=== PATIENT | male | born 1990 ===

== ENCOUNTER 2018-11-30 22:10 | Inpatient (IN) | payer OTHER ==
[~2018-11-30] VITALS: Ht 170.2 cm; Wt 85.3 kg
[~2018-11-30 22:10] MED LIST: AGM875T PO; [UNRECOGNIZED DRUG - CODE] PO
[2018-11-30] MEDS ORDERED: LACTATED RINGERS 1,000 ML IV ONE (22:29)
[2018-11-30] MEDS ORDERED: HYOSCYAMINE 0.125 MG (LEVSIN) TAB SL ONE (22:30)
[2018-11-30] MEDS ORDERED: ONDANSETRON 4 MG/2 ML (SDV) Z0FRAN IVP ONE (22:30)
[2018-11-30 22:37] LABS: BILIRUBIN,URINE NEGATIVE (NEGATIVE); CLARITY,URINE CLEAR; COLOR,URINE YELLOW; GLUCOSE, URINE (UA) 4+ (NEGATIVE); KETONES,URINE 1+ (NEGATIVE); LEUKOCYTE ESTERASE ,URINE NEGATIVE (NEGATIVE); NITRITE,URINE NEGATIVE (NEGATIVE); PH,URINE 5 (5-9); PROTEIN,URINE 3+ (NEGATIVE); UROBILINOGEN,URINE NORMAL (NORMAL)
[2018-11-30 22:37] LABS: BASOPHILS % (AUTO) 0 % (0-10); EOSINOPHILS # (AUTO) 0.7 10^3/uL (0.0-0.3); EOSINOPHILS % (AUTO) 5 % (0-10); HEMATOCRIT 43 % (40-54); LYMPHOCYTES # (AUTO) 3.7 X 10^3 (1.0-4.0); LYMPHOCYTES % (AUTO) 24 % (12-44); MEAN CORPUSCULAR HEMOGLOBIN 25 PG (25-34); MEAN CORPUSCULAR HGB CONC 35 G/DL (32-36); MEAN CORPUSCULAR VOLUME 71 FL (80-99); MEAN PLATELET VOLUME 11.1 FL (7.4-10.4); MONOCYTES # (AUTO) 0.9 X 10^3 (0.0-1.0); MONOCYTES % (AUTO) 6 % (0-12); NEUTROPHILS # (AUTO) 10.2 X 10^3 (1.8-7.8); NEUTROPHILS % (AUTO) 66 % (42-75); PLATELET COUNT 195 10^3/uL (130-400); WHITE BLOOD COUNT 15.5 10^3/uL (4.3-11.0)
[2018-11-30 22:46] LABS: BACTERIA,URINE FEW /HPF; RBC,URINE RARE /HPF; SQUAMOUS EPITHELIAL CELL,UR 0-2 /HPF; WBC,URINE RARE /HPF
[2018-11-30 22:49] LABS: INR 1.1 (0.8-1.4); PROTHROMBIN TIME PATIENT 14.3 SEC (12.2-14.7)
[2018-11-30 22:59] LABS: ALANINE AMINOTRANSFERASE 73 U/L (0-55); ALBUMIN 4.6 GM/DL (3.2-4.5); ALKALINE PHOSPHATASE 123 U/L (40-136); AMYLASE 35 U/L (25-125); BILIRUBIN,TOTAL 0.4 MG/DL (0.1-1.0); BUN/CREATININE RATIO 13; CALCIUM 9.7 MG/DL (8.5-10.1); CARBON DIOXIDE 20 MMOL/L (21-32); CHLORIDE 103 MMOL/L (98-107); GFR ESTIMATED > 60; GLUCOSE 301 MG/DL (70-105); LIPASE 31 U/L (8-78); POTASSIUM 3.7 MMOL/L (3.6-5.0); SODIUM 137 MMOL/L (135-145); TOTAL PROTEIN 8.3 GM/DL (6.4-8.2)
[2018-11-30] MEDS ORDERED: NS 100 ML (IVPB) BAG IV ONE (23:15)
[2018-11-30] MEDS ORDERED: HOLD METFORMIN - RECEIVED CONTRAST 20 ML VIAL IV SCH (23:15)
[2018-11-30] MEDS ORDERED: IOHEXOL 350 MG/ML 100 ML (OMNIPAQUE 350) VIAL IV ONE (23:15)
[2018-11-30] MEDS ORDERED: PIPERACILLIN/TAZO 4.5 GM VIAL (ZOSYN) IV ONE (23:28)
[2018-11-30] MEDS ORDERED: PIPERACILLIN/TAZOBACTAM (BULK) 4.5 GM in NS (IVPB) 100 ML IV ONE (23:30)
[2018-11-30] MEDS ORDERED: KETOROLAC 30 MG/ML VIAL IVP ONE (23:30)
[2018-11-30] MEDS ORDERED: inSUlin (REGULAR) HUMAN 1 UNIT/0.01 ML (CHARGE PER UNIT) IV ONE (23:30)
[2018-11-30 23:39] LABS: EOSINOPHILS % (MANUAL) 4 %; LYMPHOCYTES % (MANUAL) 17 %; MICROCYTOSIS SLIGHT; MONOCYTES % (MANUAL) 3 %; NEUTROPHILS % (MANUAL) 76 %
[2018-12-01] VITALS (14 sets, daily range): BP systolic 83–144; BP diastolic 37–80
[2018-12-01] MEDS ORDERED: ONDANSETRON 4 MG/2 ML (SDV) Z0FRAN IV PRN (00:30)
[2018-12-01] MEDS: NS IV 1000 ML 1,000 ML IV SCH ×4 (00:31→15:42)
--- NOTE | 2018-12-01 01:50 | NUR ---
REPORT RECEIVED FROM CHARLOTTE SHAH. TRANSFERRED TO MED/SURG 408. FAMILY AT BEDSIDE.
[2018-12-01] MEDS: fentaNYL INJECTION 100 MCG/2 ML AMP IV PRN ×3 (03:43→10:07)
[2018-12-01] MEDS ORDERED: morphine INJ 4 MG/ML 1 ML (VIAL/SYRINGE) ONE (04:22)
--- NOTE | 2018-12-01 04:25 | NUR ---
PT C/O STABBING ABDOMINAL PAIN WORSENING AFTER FENTANYL ADMINISTERED. DR POLO CONTACTED, ORDERED MORPHINE 2 MG Q 3 HR PRN PAIN.
[2018-12-01] MEDS: morphine INJ 4 MG/ML 1 ML (VIAL/SYRINGE) IVP PRN ×3 (04:31→09:22)
[2018-12-01 05:30] LABS: BASOPHILS % (AUTO) 0 % (0-10); EOSINOPHILS # (AUTO) 0.1 10^3/uL (0.0-0.3); EOSINOPHILS % (AUTO) 1 % (0-10); HEMATOCRIT 38 % (40-54); HEMOGLOBIN 12.9 G/DL (13.3-17.7); LYMPHOCYTES # (AUTO) 1.6 X 10^3 (1.0-4.0); LYMPHOCYTES % (AUTO) 13 % (12-44); MEAN CORPUSCULAR HEMOGLOBIN 25 PG (25-34); MEAN CORPUSCULAR HGB CONC 34 G/DL (32-36); MEAN CORPUSCULAR VOLUME 73 FL (80-99); MEAN PLATELET VOLUME 11.5 FL (7.4-10.4); MONOCYTES # (AUTO) 0.9 X 10^3 (0.0-1.0); MONOCYTES % (AUTO) 7 % (0-12); NEUTROPHILS # (AUTO) 10.2 X 10^3 (1.8-7.8); NEUTROPHILS % (AUTO) 80 % (42-75); PLATELET COUNT 143 10^3/uL (130-400); RED CELL DISTRIBUTION WIDTH 14.8 % (10.0-14.5); WHITE BLOOD COUNT 12.8 10^3/uL (4.3-11.0)
[2018-12-01] MEDS: inSUlin ASPART (NovoLOG) 1 UNIT/0.01 ML (CHARGE PER UNIT) SC SCH ×4 (05:56→18:34)
[2018-12-01 06:04] LABS: ALANINE AMINOTRANSFERASE 58 U/L (0-55); ALBUMIN 3.9 GM/DL (3.2-4.5); ALKALINE PHOSPHATASE 101 U/L (40-136); BILIRUBIN,TOTAL 0.5 MG/DL (0.1-1.0); BUN/CREATININE RATIO 15; CALCIUM 8.9 MG/DL (8.5-10.1); CARBON DIOXIDE 21 MMOL/L (21-32); CHLORIDE 105 MMOL/L (98-107); CREATININE SERUM 0.75 MG/DL (0.60-1.30); GFR ESTIMATED > 60; GLUCOSE 261 MG/DL (70-105); POTASSIUM 3.6 MMOL/L (3.6-5.0); SODIUM 138 MMOL/L (135-145); TOTAL PROTEIN 6.8 GM/DL (6.4-8.2)
--- NOTE | 2018-12-01 06:11 | Diagnostic Imaging Report ---
PROCEDURE: CT abdomen and pelvis with contrast. TECHNIQUE: Multiple contiguous axial images were obtained through the abdomen and pelvis after administration of intravenous contrast. Auto Exposure Controls were utilized during the CT exam to meet ALARA standards for radiation dose reduction. INDICATION: Epigastric pain and nausea There is low density throughout the liver indicating hepatic steatosis with an approximately 3 cm hyperdense focus in the dome of the right lobe which could be related to focal nodular hyperplasia, focal fatty sparing or hepatic adenoma. No gallbladder, biliary tree, pancreatic, adrenal glands or splenic abnormality is identified. There is no evidence of free fluid within the abdomen. The appendix is enlarged reaching 1 cm in diameter with minimal surrounding edema. There is no evidence of periappendiceal abscess. Partially opacified urinary bladder is unremarkable. There is no pathologic adenopathy identified. IMPRESSION: Findings are compatible with acute appendicitis without significant periappendiceal inflammation or fluid collection to indicate perforation. Otherwise, there is fatty infiltration of the liver with probable 3 cm focal nodular hyperplasia or adenoma in the right lobe. Dictated by: Dictated on workstation # [id number]
--- NOTE | 2018-12-01 07:00 | NUR ---
DR LOPES NOTIFIED OF CONSULT BY THIS RN.
[2018-12-01] MEDS: PIPERACILLIN/TAZO 4.5 GM/NS 100 ML IV SCH ×4 (07:54→15:48)
[2018-12-01] MEDS ORDERED: PANTOPRAZOLE 40 MG (PROTONIX) VIAL IV SCH (09:00)
[2018-12-01] MEDS ORDERED: ONDANSETRON 4 MG/2 ML (SDV) Z0FRAN ONE (10:24)
[2018-12-01] MEDS ORDERED: DEXAMETHASONE 10 MG/ML (DECADRON) 1 ML VIAL ONE (10:24)
[2018-12-01] MEDS ORDERED: LIDOCAINE PF 2% 5 ML (XYLOCAINE) VIAL ONE (10:24)
[2018-12-01] MEDS ORDERED: proPOfol 200 MG/20 ML (DIPRIVAN) VIAL IV ONE (10:24)
[2018-12-01] MEDS ORDERED: MIDAZOLAM 2 MG/2 ML (VERSED) VIAL ONE (10:24)
[2018-12-01] MEDS ORDERED: SEVOFLURANE (ULTANE) 15 ML INHAL SOLN ONE ×3 (10:24→14:30)
[2018-12-01] MEDS ORDERED: fentaNYL INJECTION 100 MCG/2 ML AMP ONE ×2 (10:26→14:13)
--- NOTE | 2018-12-01 11:18 | NUR ---
Initial visit with the pt and his significant other, Tammy, who introduced herself as the pt's "partner." I utilized the language line for Togolese-South Korean translation. The pt shared he was concerned about the delay in his surgery. He wants to return to providing for his family as soon as possible, having 4 children at home between the ages of 3 and 11 years old. Tammy was reassuring and supportive to the pt. She shared that her sister is of support to them and watching their children at this time. The pt is Jain and welcomed prayer .
--- NOTE | 2018-12-01 11:37 | History & Physical-Surgical ---
History of Present Illness History of Present Illness Reason for visit/HPI Surgery asked to see and admit pt for Acute appendicitis. HPI: Pt is a 28 yo male who began having pain around umbilicus at 1pm yesterday and it got progressively worse; radiated into RLQ and stayed there. He rated pain as 5 out of 10; sharp stabbing pain that is better with pain meds. Pt has never had pain like this before. Date of Admission Nov 30, 2018 at 23:25 Time Seen by a Provider: 10:04 I consulted on this patient on 12/01/18 11:30 Attending Physician Ricardo Lyn DO Admitting Physician No,Local Physician Consult Allergies and Home Medications Allergies Coded Allergies: No Known Drug Allergies (Unverified , 09/08/14) Home Medications No Active Prescriptions or Reported Meds Patient Home Medication List Home Medication List Reviewed: Yes Past Lyyzqop-Hieowy-Leoplu Hx Patient Social History Alcohol Use: Denies Use Recreational Drug Use: No Smoking Status: Never a Smoker 2nd Hand Smoke Exposure: No Recent Foreign Travel: No Contact w/Someone Who Travel: No Recent Infectious Disease Expo: No Recent Hopitalizations: No Immunizations Up To Date Tetanus Booster (TDap): Unknown Seasonal Allergies Seasonal Allergies: No Surgeries History of Surgeries: No Respiratory History of Respiratory Disorde: No Cardiovascular History of Cardiac Disorders: No Neurological History of Neurological Disord: No Genitourinary History of Genitourinary Disor: No Gastrointestinal History of Gastrointestinal Di: No Musculoskeletal History of Musculoskeletal Dis: No Endocrine History of Endocrine Disorders: No HEENT History of HEENT Disorders: No Cancer History of Cancer: No Psychosocial History of Psychiatric Problem: No Integumentary History of Skin or Integumenta: No Blood Transfusions History of Blood Disorders: No Family Medical History Significant Family History: Diabetes (denies any family hx of DM) Review of Systems Constitutional: chills; No diaphoresis; weakness EENTM: No blurred vision, No mouth pain, No mouth swelling, No epistaxis Respiratory: No cough, No dyspnea on exertion, No short of breath Cardiovascular: No chest pain, No edema, No palpitations Gastrointestinal: abdominal pain; No jaundice; nausea; No vomiting Genitourinary: No dysuria, No frequency, No hematuria Musculoskeletal: joint pain, joint swelling, muscle pain, muscle stiffness Skin: No change in color, No change in hair/nails Psychiatric/Neurological: Denies Anxiety, Denies Depressed, Denies Seizure, Denies Tremors pt denies any hx of abnormal bleeding or bruising, no hx of heat or cold intolerance Physical Exam Vital Signs Vital Signs - First Documented 11/30/18 22:14 Temp 100.0 Pulse 94 Resp 18 B/P (MAP) 133/88 (103) Pulse Ox 95 O2 Delivery Room Air Capillary Refill : Less Than 3 Seconds Height, Weight, BMI Height: 5'7.00" Weight: 188lbs. 0.2oz. 85.263348ti; 29.5 BMI Method:Stated General Appearance: WD/WN, Mild Distress Eyes: Bilateral Eye PERRL, Bilateral Eye EOMI HEENT: Pharynx Normal, Moist Mucous Membranes; No Scleral Icterus (L), No Scleral Icterus (R) Neck: Full Range of Motion, Normal Inspection, Non Tender, Supple Respiratory: Chest Non Tender, Lungs Clear, Normal Breath Sounds, No Accessory Muscle Use, No Respiratory Distress Cardiovascular: Regular Rate, Rhythm, No Murmur Gastrointestinal: Normal Bowel Sounds, No Pulsatile Mass, Soft, Tenderness (RLQ) Rectal: Deferred Back: Normal Inspection, No CVA Tenderness, No Vertebral Tenderness Extremity: Normal Capillary Refill, Normal Range of Motion, Non Tender, No Calf Tenderness Neurologic/Psychiatric: Alert, Oriented x3, No Motor/Sensory Deficits, Normal Mood/Affect, 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 Skin: Normal Color, Warm/Dry Lymphatic: No Adenopathy (neck, axilla or groin) Data Review Labs Laboratory Tests 11/30/18 22:25: Urine Color YELLOW, Urine Clarity CLEAR, Urine pH 5, Urine Specific [place] 1.025H, Urine Protein 3+H, Urine Glucose (UA) 4+H, Urine Ketones 1+H, Urine Nitrite NEGATIVE, Urine Bilirubin NEGATIVE, Urine Urobilinogen NORMAL, Urine Leukocyte Esterase NEGATIVE, Urine RBC (Auto) 4+H, Urine RBC RARE, Urine WBC RARE, Urine Squamous Epithelial Cells 0-2, Urine Crystals NONE, Urine Bacteria FEWH, Urine Casts NONE, Urine Mucus SMALLH, Urine Culture Indicated NO 11/30/18 22:30: White Blood Count 15.5H, Red Blood Count 6.05H, Hemoglobin 15.0, Hematocrit 43, Mean Corpuscular Volume 71L, Mean Corpuscular Hemoglobin 25, Mean Corpuscular Hemoglobin Concent 35, Red Cell Distribution Width 15.0H, Platelet Count 195, Mean Platelet Volume 11.1H, Neutrophils (%) (Auto) 66, Lymphocytes (%) (Auto) 24, Monocytes (%) (Auto) 6, Eosinophils (%) (Auto) 5, Basophils (%) (Auto) 0, Neutrophils # (Auto) 10.2H, Lymphocytes # (Auto) 3.7, Monocytes # (Auto) 0.9, Eosinophils # (Auto) 0.7H, Basophils # (Auto) 0.0, Neutrophils % (Manual) 76, Lymphocytes % (Manual) 17, Monocytes % (Manual) 3, Eosinophils % (Manual) 4, Microcytosis SLIGHT, Prothrombin Time 14.3, INR Comment 1.1, Activated Partial Thromboplast Time 26, Sodium Level 137, Potassium Level 3.7, Chloride Level 103, Carbon Dioxide Level 20L, Anion Gap 14, Blood Urea Nitrogen 12, Creatinine 0.90, Estimat Glomerular Filtration Rate > 60, BUN/Creatinine Ratio 13, Glucose Level 301H, Calcium Level 9.7, Corrected Calcium , Total Bilirubin 0.4, Aspartate Amino Transf (AST/SGOT) 30, Alanine Aminotransferase (ALT/SGPT) 73H, Alkaline Phosphatase 123, Total Protein 8.3H, Albumin 4.6H, Amylase Level 35, Lipase 31 12/01/18 04:51: White Blood Count 12.8H, Red Blood Count 5.23, Hemoglobin 12.9L, Hematocrit 38L, Mean Corpuscular Volume 73L, Mean Corpuscular Hemoglobin 25, Mean Corpuscular Hemoglobin Concent 34, Red Cell Distribution Width 14.8H, Platelet Count 143, Mean Platelet Volume 11.5H, Neutrophils (%) (Auto) 80H, Lymphocytes (%) (Auto) 13, Monocytes (%) (Auto) 7, Eosinophils (%) (Auto) 1, Basophils (%) (Auto) 0, Neutrophils # (Auto) 10.2H, Lymphocytes # (Auto) 1.6, Monocytes # (Auto) 0.9, Eosinophils # (Auto) 0.1, Basophils # (Auto) 0.0, Sodium Level 138, Potassium Level 3.6, Chloride Level 105, Carbon Dioxide Level 21, Anion Gap 12, Blood Urea Nitrogen 11, Creatinine 0.75, Estimat Glomerular Filtration Rate > 60, BUN/Creatinine Ratio 15, Glucose Level 261H, Calcium Level 8.9, Corrected Calcium 9.0, Total Bilirubin 0.5, Aspartate Amino Transf (AST/SGOT) 26, Alanine Aminotransferase (ALT/SGPT) 58H, Alkaline Phosphatase 101, Total Protein 6.8, Albumin 3.9 12/01/18 05:38: Glucometer 255H Assessment/Plan Assessment/Plan Admission Diagonsis Acute Appendicitis Admission Status: Observation Assessment/Plan Acute appendicitis Pt had elevated WBC (15.5) and CT was read by radiologist as acute appendicitis. Pt was admitted NPO, started on IV fluids, IV ABX, pain control and anti- emetics. Plan to go to the OR for laparoscopic Appendectomy possible open. Discussed rksks and complications not limited to pain, bleeding, infection, scar and damage to bowel. All questions answered to his satisfaction. Clinical Quality Measures DVT/VTE Risk/Contraindication: RFS Level Per Nursing on Admit: 0=No Risk/No VTE PPX RICARDO LYN DO Dec 01, 2018 11:37
[2018-12-01] MEDS ORDERED: BUP/EPI 0.5% 1:200,000 (MARCAINE) 10ML VIAL IJ ONE (12:02)
--- NOTE | 2018-12-01 12:19 | Consultation ---
HPI History of Present Illness: 28 yo male came to ER due to right lower abdominal pain that started around belly button. Started yesterday afternoon. Denies fever. Admits nausea that he does not have currently however. No vomiting, diarrhea. Admits constipation, last BM yesterday evening but was very small. He admits he was told around a year ago his blood sugar was "a point off" and given medicine, but he was feeling okay so he stopped taking it. Date seen by provider: Dec 01, 2018 Time Seen by Provider: 12:18 Attending Physician Ricardo Lyn DO PCP No,Local Physician Consult Date of Admission Nov 30, 2018 at 23:25 Home Medications Home Medications Reviewed patient Home Medication Reconciliation performed by pharmacy medication reconciliations traffic engineering technician and/or nursing. Patients Allergies have been reviewed. Allergies Coded Allergies: No Known Drug Allergies (Unverified , 09/08/14) [id number] Hx Patient Social History Alcohol Use: Denies Use Recreational Drug Use: No Smoking Status: Never a Smoker 2nd Hand Smoke Exposure: No Recent Foreign Travel: No Contact w/other who traveled: No Recent Hopitalizations: No Recent Infectious Disease Expo: No Immunizations Up To Date Tetanus Booster (TDap): Unknown Review of Systems ([facility]) Constitutional: see HPI Physical Exam-([facility]) Physical Exam Vital Signs VS - Last 72 Hours, by Label 11/30/18 11/30/18 12/01/18 12/01/18 22:14 23:47 00:18 00:41 Temp 100.0 99.9 98.2 Pulse 94 83 83 Resp 18 16 14 B/P (MAP) 133/88 (103) 151/89 (109) 130/72 Pulse Ox 95 98 97 97 O2 Delivery Room Air Room Air Room Air Room Air 12/01/18 12/01/18 12/01/18 12/01/18 04:00 08:00 08:00 12:00 Temp 97.5 99.7 99.7 Pulse 77 70 88 Resp 20 18 18 B/P (MAP) 144/80 (101) 136/79 (98) 130/76 (94) Pulse Ox 97 95 95 97 O2 Delivery Room Air Room Air Room Air Room Air 12/01/18 12/01/18 12/01/18 12/01/18 14:42 14:42 14:50 14:50 Temp 97.6 Resp 14 12 Pulse Ox 96 99 O2 Delivery OxyMask OxyMask OxyMask OxyMask O2 Flow Rate 6 6 6 6 12/01/18 12/01/18 12/01/18 12/01/18 15:00 15:05 15:10 15:15 Resp 12 14 Pulse Ox 96 96 O2 Delivery OxyMask OxyMask OxyMask OxyMask O2 Flow Rate 6 6 3 3 12/01/18 12/01/18 12/01/18 12/01/18 15:20 15:30 15:30 15:40 Resp 14 12 Pulse Ox 96 90 O2 Delivery Room Air OxyMask Nasal Cannula OxyMask O2 Flow Rate 2 2 2 12/01/18 12/01/18 12/01/18 15:40 15:50 20:18 Temp 97.6 98.5 99.0 Pulse 80 85 Resp 18 16 20 B/P (MAP) 105/61 (76) 123/71 (88) Pulse Ox 96 96 97 O2 Delivery Nasal Cannula Nasal Cannula Room Air O2 Flow Rate 2 3.00 Capillary Refill : Less Than 3 Seconds General Appearance: WD/WN, no apparent distress Respiratory: lungs clear Cardiovascular: regular rate, rhythm, no murmur Gastrointestinal: normal bowel sounds, soft, other (ttp RLQ) Neurologic/Psychiatric: alert, normal mood/affect Skin: normal color, warm/dry Assessment/Plan Assessment/Plan (1) Appendicitis Status: Acute Assessment & Plan: To OR today. Qualifiers: (2) Hyperglycemia Status: Acute Assessment & Plan: Sliding scale insulin. A1c pending. Clinical Quality Measures DVT/VTE Risk/Contraindication: RFS Level Per Nursing on Admit: 0=No Risk/No VTE PPX FITO OLPES MD Dec 01, 2018 12:18
[2018-12-01] MEDS: LACTATED RINGERS 1,000 ML IV PRN ×2 (12:34→14:19)
[2018-12-01] MEDS ORDERED: GLYCOPYRROLATE 0.2 MG/ML (ROBINUL) 2 ML VIAL ONE (14:29)
[2018-12-01] MEDS ORDERED: KETOROLAC 30 MG/ML VIAL ONE (14:29)
[2018-12-01] MEDS ORDERED: NEOSTIGMINE 3 MG/3 ML VIAL ONE (14:29)
[2018-12-01] MEDS ORDERED: ROCURONIUM 10 MG/ML 5 ML SYRINGE IV ONE (14:29)
--- NOTE | 2018-12-01 14:39 | Progress Note-Post Operative ---
Post-Operative Progess Note Surgeon (s)/Curing Pickling Packer (s) Surgeon SIMIN POLO DO Curing Pickling Packer: [place] Dixon, MS III Pre-Operative Diagnosis Acute Appy Post-Operative Diagnosis same B/L Ind IH Procedure & Operative Findings Date of Procedure 12/01/18 Procedure Performed/Findings Lap Appy Anesthesia Type GET Estimated Blood Loss Estimated blood loss (mL): scant Specimens/Packing Specimens Removed SIMIN Gonzales DO Dec 01, 2018 14:39
[2018-12-01] MEDS ORDERED: ACHD5005 PO (14:40)
--- NOTE | 2018-12-01 14:41 | Discharge Inst-Surgical ---
Discharge Inst-Surgical Depart Medication/Instructions New, Converted or Re-Newed RX: RX Given to Pt/Family Patient Instructions Follow up Appt: Make appointment for 1 week. [phone] Instructions: No lifting greater than 20 pounds. No strenuous activity. May shower in 24 hours, no tub bath or soaking. Use incentive spirometer at home as directed. No Smoking Skin/Wound Care: May remove bandages in am. You need to leave the Dermabond on incision it will fall off on it's own. Symptoms to Report: Appetite Changes, Extremity Discoloration, Numbness/Tingling, Swelling Increased, Bleeding Excessive, Eyesight Changes, Pain Increased, Urine Color Change, Constipation(Persistent), Fever over 101 degree F, Pain/Pressure in chest, Urinating Difficulty, Cough Up/Vomit Blood, Heart Beat Irreg/Pounding, Pain/Pressure in jaw, Cramps in feet or legs, Lightheadedness, Pain/Pressure in shoulder, Diarrhea(Persistent), Memory Changes Suddenly, Questions/Concerns, Weight gain consecutive days, Dizziness/Fainting, Nausea/Vomiting, Shortness of Breath, Weight gain over 2 pounds If questions or concerns contact your physician Or seek help at emergency department. Activity Activity as Tolerated: Yes Activity Instructions: Avoid Stress to Incision Driving Instructions: No Driving/Refer to Dr. Mcakay Discharge Diet: No Restrictions Diet After 24 Hours: Clear Liquid if Nauseous If Any Problems/Questions/Issu: Contact Your Physician, Go to Emergency Room Skin/Wound Care Infection Signs and Symptoms: Increased Redness, Foul Odor of Wound, Increased Drainage, Skin Itchy or Has a Rash, Increased Swelling, Temperature Above 101 F Wound Care Comment: heating pad to shoulder or neck tonight Bathing Instructions: Shower Stitches/Rupali/Dermabond Dis: Dermabond Ice Pack: Ice On and Off Site (as needed for pain at incisions) SIMIN POLO DO Dec 01, 2018 14:41
[2018-12-01] MEDS ORDERED: HYDROmorphone 2 MG/ML VIAL (DILAUDID) IV ONE (15:00)
[2018-12-01] MEDS ORDERED: MEPERIDINE (DEMEROL) INJ 50 MG/ML IVP ONE (15:00)
[2018-12-01] MEDS ORDERED: ONDANSETRON 4 MG/2 ML (SDV) Z0FRAN IVP PRN (15:00)
[2018-12-01] MEDS ORDERED: morphine INJ 10 MG/ML 1ML (SYR OR VIAL) IVP ONE (15:00)
--- NOTE | 2018-12-01 19:24 | OPERATIVE REPORT ---
DATE OF SERVICE: PREOPERATIVE DIAGNOSIS: Acute appendicitis. POSTOPERATIVE DIAGNOSIS: Acute appendicitis plus bilateral indirect inguinal hernia. PROCEDURE: Laparoscopic appendectomy. SURGEON: Ricardo Lyn DO ECOLOGICAL RISK ASSESSOR: [place] Dixon MS3. ANESTHESIA: General endotracheal tube. SPECIMEN: Appendix. BLOOD LOSS: Scant. FLUIDS: Per anesthesia. POSTOPERATIVE CONDITION: Stable. INDICATION FOR PROCEDURE: The patient is a 28-year-old male who had pain in the right lower quadrant, elevated white count and a CT, which confirmed acute appendicitis. FINDINGS: The patient had acute appendicitis, very thickened appendix noted to have bilateral indirect inguinal hernia as well. PROCEDURE NOTE: After informed consent was obtained, the patient was brought to the operating room, placed on the table in supine position. He was sterilely prepped and draped in normal fashion. Local lidocaine was used to infiltrate the skin above the umbilicus. I made the incision with #11 blade, carried down through the skin into subcutaneous tissue, then deepened down to subcutaneous tissue with Bovie electrocautery down to fascia. Fascia was incised with Bovie electrocautery and bluntly entered the abdomen, swept a finger around, placed 0 Vicryl [id number] suture and placed an 11 mm trocar port under direct visualization. Created pneumoperitoneum and placed 2 more ports in normal fashion using local lidocaine, 11 blade for stab incision and Versed system, all done under direct visualization, one suprapubically and one in the left lower quadrant. The patient was then placed slightly Trendelenburg with left, looked in the pelvis, saw indirect inguinal hernia on both sides, took a picture of this and then noted the appendix was very thickened. There was some fibrinous material around it and some murky fluid, but no real purulence, had not perforated. Carefully moved the small intestine in the sigmoid out of the way and we started trying to get it was kind of curled up almost a retrocecal, so able to grasp the mesoappendix and then grasped with a LigaSure, clamping, coagulating and transect and then get under the appendix right at the base of the cecum and then switched to 5 mm camera, brought Endo-ROSMERY the base of the appendix, clamped and held for 30 seconds, then fired, held for 20 seconds and then cut the appendix off and then removed this and then used the LigaSure coming across the mesoappendix mm in a stepwise fashion, clamping, coagulating and transecting in this fashion completely removing the appendix and then placed a bag down in, placed the appendix in the bag and removed through supraumbilical incision. Placed the port back in the abdomen, copiously irrigated with normal saline suctioned this out. Irrigated until it was clear, took a picture of the staple line, looked good and then placed the omentum back over the staple line. Placed the patient flat and then removed all ports under direct visualization, allowed pneumoperitoneum to escape as well as suctioned it out. I then closed the supraumbilical incision, closing the fascia with 0 Vicryl suture previously placed and then copiously irrigated all incisions with normal saline, closing the 2 small 5 mm incisions with single interrupted 4-0 undyed Monocryl subcuticular stitch, closed supraumbilical incision with four interrupted 4-0 undyed Monocryl subcuticular stitches. Area was cleaned and dried. Dermabond placed as well as Band-Aids. The patient then transferred to recovery room in stable condition. The patient tolerated the procedure well. Sponge, instrument and needle count correct at the end of the case. Job ID: [id number] DocumentID: [id number] Dictated Date: 12/01/2018 14:38:45 Emergency Care Tech Date: 12/01/2018 19:23:46 Dictated By: DO CALLY JUNE
--- NOTE | 2018-12-02 07:40 | Anesthesia-General Post-Op ---
General Patient Condition Mental Status/LOC: Same as Preop Cardiovascular: Satisfactory Nausea/Vomiting: Absent Respiratory: Satisfactory Pain: Controlled Complications: Absent Post Op Complications Complications None Follow Up Care/Instructions Patient Instructions None needed. Anesthesia/Patient Condition Patient Condition Patient is doing well, no complaints, stable vital signs, no apparent adverse anesthesia problems. No complications reported per nursing. [place] [facility] [place] Yes ERASMO JOHNSTON CRNA Dec 02, 2018 07:40
== END 2018-12-01 20:25 | disposition home or self-care (01) | DRG 343 ==
LOC: EDUNIT# 22:10 → ER 22:12 → ICU 23:25 → 4TH 12-01 01:50
PROVIDERS: ADMIT Surgery; ATTEND Surgery
PROC: 0DTJ4ZZ Resection of Appendix, Percutaneous Endoscopic Approach (ICD-10-PCS; principal; 2018-12-01 13:46)
DX: K35.80 Unspecified acute appendicitis (principal); R73.9 Hyperglycemia, unspecified; K40.20 Bilateral inguinal hernia, without obstruction or gangrene, not specified as recurrent
CPT/HCPCS: 36415; 74177; 80053; 81000; 82150; 82962; 83036; 83690; 85007; 85025; 85027; 85610; 85730; 87081

== ENCOUNTER 2019-06-07 01:38 | Emergency (ER) | payer SELFPAY ==
[~2019-06-07] VITALS: Ht 162 cm; Wt 86.2 kg
[~2019-06-07 01:38] MED LIST changes: +ACHD5005 PO
[2019-06-07] MEDS ORDERED: BUPIVACAINE 0.5% 30 ML (SENSORCAINE) VIAL INJ ONE (02:15)
[2019-06-07] MEDS ORDERED: KETOROLAC 60 MG/2 ML VIAL IM ONE (02:15)
[2019-06-07] MEDS ORDERED: methylPREDNISolone 40 MG/ML (DEPO MEDROL) VIAL IM ONE (02:15)
[2019-06-07] MEDS ORDERED: LIDOCAINE/EPI 2% 1:100,00 (XYLOCAINE) 20 ML VIAL INJ ONE (02:15)
--- NOTE | 2019-06-07 02:21 | ED Lower Extremity ---
General Chief Complaint: Lower Extremity Stated Complaint: L LEG PAIN Nursing Triage Note: C/O LOWER EXTREMITY PAIN IN LEFT POSTERIOR THIGH AREA. WAS SEEN AT [facility] IN THE WEEK AND STARTED ON PREDNISONE AND CYCLOBENZEPRINE. C/O PAIN CRAMPING Nursing Sepsis Screen: No Definite Risk Source: patient, family Exam Limitations: no limitations History of Present Illness Date Seen by Provider: Jun 07, 2019 Time Seen by Provider: 02:06 Initial Comments Patient presents ER by private conveyance with chief complaint of pain in the back of his left leg for the past 3 months that has progressively gotten worse over the last 2-3 days. He went to the clinic at [facility], 1928[facility]1983 and was given muscle relaxants as well as prednisone which she has been taking with no relief in the past 2 days. He is also using Tylenol and ibuprofen. No topical creams. No inciting incident or trauma. No car wreck fall etc. He has had his appendix out but no other significant surgeries. He rates the pain is severe presently and is very difficult to walk on it. He has some mild pain in his low back and side. He denies a history of significant back injury back surgery or back imaging. Allergies and Home Medications Allergies Coded Allergies: No Known Drug Allergies (Unverified , 09/08/14) Home Medications Hydrocodone Bit/Acetaminophen 1 Tab Tab, 1 TAB PO Q6H PRN for PAIN-MODERATE Prescribed by: SIMIN POLO on 12/01/18 1440 Patient Home Medication List Home Medication List Reviewed: Yes Review of Systems Constitutional: No chills, No diaphoresis, No fever, No malaise EENTM: No ear discharge, No hearing loss Respiratory: No cough, No short of breath Cardiovascular: No chest pain, No edema Gastrointestinal: No abdominal pain, No nausea, No vomiting Genitourinary: No dysuria, No frequency Musculoskeletal: No back pain, No joint pain Skin: No pruritus, No rash Psychiatric/Neurological: Denies Headache, Denies Numbness, Denies Paresthesia Past Vgbemgo-Pxofwv-Dcxbjp Hx Patient Social History Alcohol Use: Denies Use Recreational Drug Use: No 2nd Hand Smoke Exposure: No Recent Foreign Travel: No Contact w/Someone Who Travel: No Recent Infectious Disease Expo: No Recent Hopitalizations: No Physical Abuse: No Sexual Abuse: No Mistreated: No Fear: No Immunizations Up To Date Tetanus Booster (TDap): Unknown Seasonal Allergies Seasonal Allergies: No Past Medical History Surgeries: Yes Appendectomy Respiratory: No Cardiac: No Neurological: No Genitourinary: No Gastrointestinal: No Musculoskeletal: No Endocrine: No HEENT: No Cancer: No Psychosocial: No Integumentary: No Blood Disorders: No Physical Exam Vital Signs Vital Signs - First Documented 06/07/19 01:44 Temp 36.7 Pulse 76 Resp 20 B/P (MAP) 134/85 (101) Pulse Ox 97 Capillary Refill : Less Than 3 Seconds Height, Weight, BMI Height: 5'7.00" Weight: 188lbs. 0.2oz. 85.038975dt; 32.00 BMI Method:Stated General Appearance: WD/WN, no apparent distress HEENT: normal ENT inspection, pharynx normal Neck: full range of motion, normal inspection Cardiovascular: normal peripheral pulses, regular rate, rhythm Respiratory: no respiratory distress, no accessory muscle use Hips: bilateral hip non-tender, bilateral hip normal inspection, bilateral hip limited range of motion (secondary to pain) Legs: bilateral leg normal inspection, bilateral leg normal range of motion, bilateral leg soft tissue tenderness (posterior lateral hamstrings) Knees: bilateral knee non-tender, bilateral knee normal inspection, bilateral knee normal range of motion, bilateral knee no evidence of injury Reflexes: 2+ ankle (R), 2+ ankle (L) Neurologic/Tendon: normal sensation, normal motor functions, normal tendon functions, responds to pain, no evidence tendon injury Neurologic/Psychiatric: alert, normal mood/affect, oriented x 3 Skin: normal color, warm/dry Progress/Results/Core Measures Results/Orders My Orders Orders - DAISHA JULIO Ketorolac Injection (Toradol Injection) (06/07/19 02:15) Bupivacaine 0.5% Injection (Sensorcaine (06/07/19 02:15) Lidocaine/Epi 2% 1:100,000 (Xylocaine/Ep (06/07/19 02:15) Methylprednisolone Acetate Inj (Depo-Med (06/07/19 02:15) Femur, Left, 2 Views (06/07/19 02:21) Medications Given in ED Current Medications Medications Dose Ordered Sig/Boy Route Start Time Stop Time Status Last Admin Dose Admin Bupivacaine HCl 30 ml ONCE ONCE INJ 06/07/19 02:15 06/07/19 02:16 DC 06/07/19 02:23 30 ML Ketorolac Tromethamine 60 mg ONCE ONCE IM 06/07/19 02:15 06/07/19 02:16 DC 06/07/19 02:21 60 MG Lidocaine/ Epinephrine 20 ml ONCE ONCE INJ 06/07/19 02:15 06/07/19 02:16 DC 06/07/19 02:22 20 ML Methylprednisolone Acetate 40 mg ONCE ONCE IM 06/07/19 02:15 06/07/19 02:16 DC 06/07/19 02:22 40 MG Vital Signs/I&O 06/07/19 01:44 Temp 36.7 Pulse 76 Resp 20 B/P (MAP) 134/85 (101) Pulse Ox 97 Blood Pressure Mean: 101 Progress Progress Note #1: Time: 02:20 Progress Note His pain is reproducible with direct palpation over the L5-S1 facet joint on the left side of his back. I suspect that he is having sciatic pain related to his back. We'll get an x-ray of his hip and if the plain film is okay we can give him a shot of Depo-Medrol and a local bupivacaine/lidocaine block. Toradol for his pain immediately. Progress Note #2: Time: 03:26 Progress Note Bupivacaine, lidocaine with epinephrine to 6H and 1 cc of 40 mg Depo-Medrol injected at the level of the L5-S1 facet joint. Diagnostic Imaging Diagonstic Imaging: Xray Plain Films/CT/US/NM/MRI: femur (left) Comments No acute osseous abnormalities. Departure Impression Primary Impression: Lumbago with sciatica, left side Qualified Codes: M54.42 - Lumbago with sciatica, left side Disposition: 01 HOME, SELF-CARE Condition: Stable Departure-Patient Inst. Decision time for Depature: 03:28 Referrals: NO,LOCAL PHYSICIAN (PCP/Family) Primary Care Physician Patient Instructions: Sciatica (DC) Add. Discharge Instructions: Drink plenty of fluids. Naproxen 500 mg twice a day for the next week. Tylenol 1000 mg every 8 hours as needed for pain. Heating pads and topical creams such as icy hot or Biofreeze use liberally. Do not lift push or pull more than 40 pounds for the next 2 weeks. Return to work Saturday. Follow-up with primary care for continued management of your symptoms. All discharge instructions reviewed with patient and/or family. Voiced understanding. Scripts Naproxen (Naprosyn) 500 Mg Tablet 500 MG PO BID for 14 Days, #30 TAB 0 Refills Prov: DAISHA JULIO 06/07/19 Work/School Note: Work Release Form Date Seen in the Emergency Department: Jun 07, 2019 Return to Work: Jun 09, 2019 Restrictions: Need Release from Doctor Other Restrictions Listed Below: Do not lift, push or pull more than 40 pounds until 06/21/19. DAISHA JULIO Jun 07, 2019 02:21
[2019-06-07] MEDS ORDERED: NAPR-1071 PO (03:29)
[2019-06-07 04:37] VITALS: BP 134/80
[2019-06-07] MEDS ORDERED: ORPHENADRINE 60 MG/2 ML (NORFLEX) AMP IM ONE (04:45)
--- NOTE | 2019-06-07 07:52 | Diagnostic Imaging Report ---
CLINICAL HISTORY: Thigh pain. Cramping. COMPARISON: None TECHNIQUE: 4 views of the left femur. FINDINGS: There is no acute fracture or dislocation of the left femur. Alignment is anatomic. No focal osseous lesions. The included soft tissues are unremarkable. IMPRESSION: 1. No acute fracture or dislocation of the left femur. Dictated by: Dictated on workstation # [id number]
== END 2019-06-07 05:00 | disposition home or self-care (01) ==
LOC: EDUNIT# 01:38 → ER 01:39
DX: M54.42 Lumbago with sciatica, left side (principal)
CPT/HCPCS: 73552

== ENCOUNTER → 2019-06-16 | Outpatient (CLI) | payer OTHER ==
[~2019-06-16] MED LIST changes: +NAPR-1071 PO
--- NOTE | 2019-06-16 10:59 | Diagnostic Imaging Report ---
PROCEDURE: MRI lumbar spine. TECHNIQUE: Multiplanar, multisequence MRI of the lumbar spine was performed without contrast. INDICATION: Left hip and leg pain. COMPARISON: None FINDINGS: For the purposes of this exam, last well-formed disc space is denoted to be the L5-S1 level. Static alignment is maintained. There is no significant anterolisthesis or retrolisthesis. There is no evidence of jumped facets. Vertebral body heights are maintained. There is no evidence of acute fracture. Marrow signal is normal throughout. Intervertebral disc heights are maintained, although there is loss of normal fluid type bright signal at the L4-L5 and L5-S1 levels. Other degenerative changes at these levels are also noted and are discussed later in the report. Visualized portions of the distal cord are unremarkable. Conus terminates at approximately the T12-L1 level. No abnormal intrathecal filling defects are seen. Pre and paravertebral soft tissue structures are unremarkable. Axial images demonstrate the following: T12-L1 through L3-L4: There is no large disc bulge or focal protrusion. There is no significant spinal canal or neural foraminal stenosis. L4-L5: There is large central posterior disc protrusion superimposed on broad-based posterior disc bulge. There is also mild bilateral facet arthropathy. As a result, there is mild narrowing of the spinal canal and moderate stenosis of the bilateral lateral recesses. There is also mass effect on the exiting bilateral L5 nerve roots and mild narrowing of the bilateral neural foramen. L5-S1: There is large central posterior disc protrusion superimposed on broad-based posterior disc bulge. As a result, there is [id number] spinal canal stenosis. There is also stenosis of the bilateral lateral recesses with mass effect on the bilateral exiting S1 nerve roots. Mild narrowing of bilateral neural foramen is also noted. IMPRESSION: 1. Large posterior disc protrusion superimposed on broad-based posterior disc bulges at the L4-L5 and L5-S1 levels resulting in significant bilateral lateral recess stenosis and mass effect on the exiting L5 and S1 nerve roots. 2. No acute fracture or dislocation. Dictated by: Dictated on workstation # [id number]
== END ==
LOC: RAD 09:58
PROVIDERS: ATTEND Nurse Practitioner Family
DX: M51.17 Intervertebral disc disorders with radiculopathy, lumbosacral region (principal)
CPT/HCPCS: 72148